=== PATIENT | female | born 1985 | race Caucasian/White ===

== ENCOUNTER 2017-01-07 14:28 | Emergency (ER) | payer OTHER | END 2017-01-07 15:20 | disposition home or self-care (01) | LOC: ER 14:28 | DX: J11.1 Influenza due to unidentified influenza virus with other respiratory manifestations (principal); F11.20 Opioid dependence, uncomplicated; F17.210 Nicotine dependence, cigarettes, uncomplicated | CPT/HCPCS: 87070; 87400; 87880; 99283 ==